=== PATIENT | female | born 1985 | race Caucasian/White ===

== ENCOUNTER 2024-11-05 17:21 | Outpatient (CLI) | payer OTHER, SELFPAY | END 2024-11-05 17:22 | disposition home or self-care (01) | LOC: NFLDREF 11-06 22:57 | PROVIDERS: PCP Family Medicine; Referring Provider Family Medicine; Visit Provider Family Medicine | DX: Z00.00 Encounter for general adult medical examination without abnormal findings (principal); N80.9 Endometriosis, unspecified; F41.9 Anxiety disorder, unspecified; F32.A Depression, unspecified; G47.00 Insomnia, unspecified; L73.2 Hidradenitis suppurativa | CPT/HCPCS: 80053 ==